=== PATIENT | male | born 1950 | race Caucasian/White ===

== ENCOUNTER 2016-12-05 06:02 | Day surgery (SDC) | payer OTHER ==
[~2016-12-05] VITALS: Ht 195.6 cm; Wt 149.1 kg
[~2016-12-05 06:02] MED LIST: AMLO10 PO; AMLO5TAB22 PO; ASPI81TA11 PO; COEN400C PO; COZA100T PO; DILA2TAB2 PO; FENO160T2 PO; LANTUS2P SC; METF-324 PO; NOVOLOGP2 SQ; PRAV20 PO; SENN187 PO; VITA10004 PO; VITA400C70 PO; VITA500015 PO
[2016-12-05 06:43] VITALS: BP 182/90; PULSE 78; RESP 20; TEMP 98; O2SAT 94
[2016-12-05] MEDS ORDERED: VANCOMYCIN 1000 MG/NS 250 ML - implanted port/tunneled catheter IV SCH ×2 (06:45)
[2016-12-05] MEDS ORDERED: POVIDONE IODINE 5% (ANTISEPSIS KIT) 4 APPLICATIONS EACH NARE SCH (06:45)
[2016-12-05] MEDS ORDERED: CHLORHEXIDINE GLUCONATE 2 % 1 PACK (2 CLOTHS) TOPICAL SCH (06:45)
[2016-12-05] MEDS: SODIUM CHLORIDE 0.9% 1000 ML IV SCH ×2 (06:45→07:45)
[2016-12-05] MEDS ORDERED: ceFAZolin 2 GM PREMIX 50 ML - implanted port/tunneled catheter insertion IV SCH (06:45)
[2016-12-05] MEDS ORDERED: NOVOLOGP2 SQ (07:04)
[2016-12-05] MEDS ORDERED: AMLO10TA2 PO (07:04)
[2016-12-05] MEDS ORDERED: METF1000 PO (07:04)
[2016-12-05] MEDS ORDERED: ASPI81TA81 (07:04)
[2016-12-05] MEDS ORDERED: PRAV40TA2 PO (07:04)
[2016-12-05] MEDS ORDERED: LOSA100T PO (07:04)
[2016-12-05] MEDS ORDERED: VITA100032 (07:04)
[2016-12-05] MEDS ORDERED: FENO160T PO (07:04)
[2016-12-05] MEDS ORDERED: INSU1.2I SQ (07:04)
[2016-12-05] MEDS ORDERED: VITA100021 SL (07:04)
[2016-12-05] MEDS ORDERED: AMLO10 PO (07:04)
[2016-12-05] MEDS ORDERED: PROT40TA PO (07:07)
[2016-12-05] MEDS ORDERED: DILA2TAB2 PO (07:07)
[2016-12-05] MEDS ORDERED: LEXA20TA PO (07:07)
[2016-12-05] MEDS ORDERED: COQ1200C (07:07)
[2016-12-05] MEDS ORDERED: VITA400C2 PO (07:07)
[2016-12-05] MEDS ORDERED: ZOFR8TAB PO (07:07)
[2016-12-05] MEDS ORDERED: MIDAZOLAM HCL 5 MG/5 ML VIAL ONE (08:33)
[2016-12-05] MEDS ORDERED: fentaNYL CITRATE 250 MCG/5 ML AMP ONE (08:33)
[2016-12-05] MEDS ORDERED: LIDOCAINE 1%/EPINEPHrine 1:100,000 SOLN 20 ML VIAL ONE (08:42)
[2016-12-05 09:30] VITALS: BP 170/81; PULSE 84; RESP 18; TEMP 98.3; O2SAT 94
[2016-12-05 09:45] VITALS: BP 185/89; PULSE 83; RESP 18; O2SAT 94
[2016-12-05 10:00] VITALS: BP 157/79; PULSE 82; RESP 18; O2SAT 94
[2016-12-05 10:30] VITALS: BP 138/72; PULSE 80; RESP 18; O2SAT 94
--- NOTE | 2016-12-05 10:34 | PD.RAD ---
Post Procedure Progress Note Pre Procedure Diagnosis: (1) Right renal mass Post Procedure Diagnosis: (1) Right renal mass Procedure Date: Dec 05, 2016 Supervising Radiologist: Geoffrey Sanabria Proceduralist/Assist: RT Ginny(R), RT Antonio(R) Anesthesia: Conscious Sedation Plan of Activity Patient to Unit: ROPU Patient Condition: Fair See PACS Report for procedural detail/treatment Central Venous Access Device Procedure 1 Right Internal Jugular Infusaport Placement single lumen Geoffrey Sanabria MD Dec 05, 2016 10:34
[2016-12-05] MEDS ORDERED: SODIUM CHLORIDE 0.9% FLUSH 5 ML FLUSH IVF PRN (10:45)
[2016-12-05 11:00] VITALS: BP 129/69; PULSE 76; RESP 18; O2SAT 94
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
== END 2016-12-05 11:40 | disposition home or self-care (01) ==
LOC: HROP 06:02 → HRIP 06:43 → HROP 11:40
PROVIDERS: ATTEND Internal Medicine Hematology & Oncology
DX: Z45.2 Encounter for adjustment and management of vascular access device (principal); C64.9 Malignant neoplasm of unspecified kidney, except renal pelvis; I10 Essential (primary) hypertension; E78.5 Hyperlipidemia, unspecified; E11.9 Type 2 diabetes mellitus without complications; K21.9 Gastro-esophageal reflux disease without esophagitis
CPT/HCPCS: 36561; 76937; 77001; C1788; J0690; J1642; J2250; J3010; J3370; J7030; J7050

== ENCOUNTER 2017-07-12 08:58 | Day surgery (SDC) | payer OTHER ==
[~2017-07-12] VITALS: Ht 195.6 cm; Wt 150.0 kg
[~2017-07-12 08:58] MED LIST changes: +AMLO10TA2 PO; -AMLO5TAB22 PO; -ASPI81TA11 PO; +ASPI81TA81 PO; -COEN400C PO; +COQ1200C; -COZA100T PO; +FENO160T PO; -FENO160T2 PO; +INSU1.2I SQ; -LANTUS2P SC; +LEXA20TA PO; +LOSA100T PO; -METF-324 PO; +METF1000 PO; -PRAV20 PO; +PRAV40TA2 PO; +PROT40TA PO; -SENN187 PO; +VITA100021 SL; +VITA100032; -VITA10004 PO; +VITA400C2 PO; -VITA400C70 PO; -VITA500015 PO; +ZOFR8TAB PO
[2017-07-12 09:19] VITALS: BP 180/90; PULSE 67; RESP 18; TEMP 98; O2SAT 94
[2017-07-12] MEDS ORDERED: COEN400C PO (09:47)
[2017-07-12] MEDS ORDERED: VITA1000 PO (09:47)
[2017-07-12] MEDS ORDERED: CELE40TA PO (09:47)
[2017-07-12] MEDS ORDERED: VITA200C3 PO (09:47)
[2017-07-12] MEDS ORDERED: CELE200C PO (09:47)
[2017-07-12 09:51] LABS: AUTOMATED NEUTROPHIL # 4.4 TH/MM3 (1.8-7.7); BASOPHIL % 0.8 % (0.0-2.0); EOSINOPHIL # 0.1 TH/MM3 (0-0.4); EOSINOPHIL % 1.9 % (0.0-4.0); HEMATOCRIT 37.9 % (39.0-51.0); HEMO FLAGS DIFF FINAL; LYMPH % 9.3 % (9.0-44.0); LYMPHOCYTE # 0.5 TH/MM3 (1.0-4.8); MEAN CELL VOLUME 87.3 FL (80.0-100.0); MEAN CORPUSCULAR HEMOGLOBIN 29.3 PG (27.0-34.0); MEAN CORPUSCULAR HGB CONC 33.6 % (32.0-36.0); MONO % 10.1 % (0.0-8.0); NEUT % 77.9 % (16.0-70.0); PLATELET COUNT 173 TH/MM3 (150-450); RED BLOOD COUNT 4.34 MIL/MM3 (4.50-5.90); WHITE BLOOD COUNT 5.6 TH/MM3 (4.0-11.0)
[2017-07-12] MEDS ORDERED: INSULIN HUMAN REGULAR 1,000 UNITS/10 ML VIAL SQ PRN (10:00)
[2017-07-12] MEDS ORDERED: SODIUM CHLOR 0.9% 1000 ML INJ 1,000 ML IV SCH (10:00)
[2017-07-12] MEDS ORDERED: SODIUM CHLORID 0.9% 500 ML IV PRN (10:00)
[2017-07-12] MEDS ORDERED: CHLORHEXIDINE GLUCONATE 2 % 1 PACK (2 CLOTHS) TOPICAL PRN (10:00)
[2017-07-12] MEDS ORDERED: LACTATED RINGER'S 1000 ML IV PRN (10:00)
[2017-07-12] MEDS ORDERED: METOPROLOL TARTRATE 25 MG TAB PO PRN (10:00)
[2017-07-12] MEDS ORDERED: POVIDONE IODINE 5% (ANTISEPSIS KIT) 4 APPLICATIONS EACH NARE PRN (10:00)
[2017-07-12 10:02] LABS: APTT (PATIENT) 70.7 SEC (24.3-30.1); INTERNATIONAL NORMALIZED RATIO 1.1 RATIO; PROTHROMBIN TIME - PATIENT 11.8 SEC (9.8-11.6)
[2017-07-12 10:15] LABS: POTASSIUM 3.8 MEQ/L (3.5-5.1)
[2017-07-12] MEDS ORDERED: ePHEDrine/NS 25 MG/5 ML SYR IV ONE (10:16)
[2017-07-12] MEDS ORDERED: PROPOFOL 200 MG/20 ML AMP IV ONE (10:16)
[2017-07-12] MEDS ORDERED: ONDANSETRON HCL 4 MG/2 ML VIAL IV PUSH ONE (10:16)
[2017-07-12] MEDS ORDERED: PHENYLEPH/NS 1000 MCG/10 ML SYR IV ONE (10:16)
--- NOTE | 2017-07-12 12:42 | EKG ---
Date Performed: 07/12/2017 Time Performed: 09:45:20 PTAGE: 67 years EKG: Sinus rhythm LEFT ANTERIOR FASCICULAR BLOCK ABNORMAL ECG PREVIOUS TRACING : 12/22/2014 10.50 DOCTOR: Ton Caruso Interpretating Date/Time 07/12/2017 12:40:28
[2017-07-12] MEDS ORDERED: ceFAZolin 2 GM PREMIX 50 ML ONE (13:05)
[2017-07-12] MEDS ORDERED: BUPIVACAINE HCL PF 0.75% 30 ML VIAL ONE (13:08)
[2017-07-12] MEDS ORDERED: DO NOT ADM ANY ANTICOAGULANT DRUGS PRN (15:30)
--- NOTE | 2017-07-12 15:30 | PD.RAD ---
Post Procedure Progress Note Pre Procedure Diagnosis: (1) Vertebral compression fracture Post Procedure Diagnosis: (1) Vertebral compression fracture Procedure Date: Jul 12, 2017 Supervising Radiologist: Rafael Roberson Proceduralist/Assist: RT Darlin(R) Anesthesia: General Plan of Activity Patient to Unit: PACU Patient Condition: Good See PACS Report for procedural detail/treatment Spinal Procedure Kyphoplasty T12 Total Bone Cement (CCs): 5 Biopsy: 13 ga bone biopsy Rafael Roberson MD Jul 12, 2017 15:30
[2017-07-12 15:55] VITALS: BP 139/74; PULSE 65; RESP 16; TEMP 97.9; O2SAT 94
[2017-07-12 16:10] VITALS: BP 142/78; PULSE 63; RESP 20; O2SAT 96
[2017-07-12 16:40] VITALS: BP 161/93; PULSE 66; RESP 20; O2SAT 95
[2017-07-12 17:10] VITALS: BP 176/89; PULSE 70; RESP 20; O2SAT 97
--- NOTE | 2017-07-13 14:36 | RADRPT ---
EXAM DATE/TIME: 07/12/2017 00:00 [facility] COMPARISON: No previous studies available for comparison. INDICATIONS : Patient presents with compression fracture of thoracic vertebrae twelve in need of kyphoplasty . MEDICAL HISTORY : Renal cancer GERD T12 compression fracture DM High cholesterol SURGICAL HISTORY : Partial right nephrectomy Right rotator cuff repair Right leg repair ENCOUNTER: Initial ACUITY: 7-11 months PAIN SCORE: 5/10 LOCATION: Back and neck pain. FLUORO TIME: 21.0 minutes IMAGE SERIES: 0 SEDATION TIME: LEVEL: T12 DEVICE: 1. 7 cc AVAMax bone cement PROCEDURE : 1. Fluoroscopically-guided kyphoplasty. 2. Conscious sedation with continuous EKG and oximetry monitoring. The risks, benefits and alternatives to the procedure were explained and verbal and written consent w as obtained. The site was prepped in sterile fashion. Full sterile technique was used, including ca p, mask, sterile gloves and gown and a large sterile sheet. Hand hygiene and 2% chlorhexidine and/or betadine/alcohol prep was utilized per protocol for cutaneous antisepsis. The skin and subcutaneous tissues were infiltrated with local anesthetic solution. With fluoroscopic guidance via the above described approach access was gained to the vertebral body. Kyphoplasty was performed with cavity creation as above. The prescribed cement volume was placed. Post procedure images demonstrate cement confined to the vertebral body. Conscious sedation was performed with the prescribed dosages and duration as above in the presence of an independent trained radiology nurse to assist in the monitoring of the patient. EKG and oximetry remained stable throughout the procedure. The patient tolerated the procedure well and there were n o complications. The patient was sent to post anesthesia recovery in stable condition. CONCLUSION: Uncomplicated kyphoplasty as above. Rafael Roberson MD on July 13, 2017 at 14:34 Board Certified Radiologist. This report was verified electronically.
== END 2017-07-12 17:40 | disposition home or self-care (01) ==
LOC: HROP 08:58 → HRIP 08:59 → HROP 17:40
PROVIDERS: ATTEND Internal Medicine Hematology & Oncology
DX: S22.080A Wedge compression fracture of T11-T12 vertebra, initial encounter for closed fracture (principal); Z85.528 Personal history of other malignant neoplasm of kidney; K21.9 Gastro-esophageal reflux disease without esophagitis; E11.9 Type 2 diabetes mellitus without complications; E78.00 Pure hypercholesterolemia, unspecified; R94.31 Abnormal electrocardiogram [ECG] [EKG]; Z79.4 Long term (current) use of insulin
CPT/HCPCS: 22513; 80048; 85025; 85610; 85730; 88307; 88311; 88341; 88342; 93005; J0690; J2370; J2405

== ENCOUNTER 2017-12-07 13:09 | Emergency (ER) | payer OTHER ==
[~2017-12-07] VITALS: Ht 195.6 cm; Wt 140.0 kg
[~2017-12-07 13:09] MED LIST changes: -AMLO10TA2 PO; +CELE200C PO; +CELE40TA PO; +COEN400C PO; -COQ1200C; -DILA2TAB2 PO; +DILA2TAB4 PO; -LEXA20TA PO; +VITA1000 PO; -VITA100032; +VITA200C3 PO; -VITA400C2 PO
[2017-12-07] MEDS ORDERED: IOHEXOL 350 MG/ML 10 ML VIAL (for RAD DIAG) IVCONTRAST ONE (13:10)
[2017-12-07] MEDS ORDERED: IODIXANOL 320 MG/ML 10 ML VIAL (for Rad CT) IVCONTRAST ONE (13:10)
[2017-12-07 13:12] VITALS: BP 135/94; PULSE 80; RESP 18; TEMP 99; O2SAT 96
[2017-12-07] MEDS ORDERED: HYDROmorphone HCL PF 1 MG/ML VIAL IVS ONE (14:30)
[2017-12-07] MEDS ORDERED: SODIUM CHLOR 0.9% 1000 ML INJ 1,000 ML IV ONE (14:30)
--- NOTE | 2017-12-07 14:34 | PD ---
HPI Chief Complaint: GI Complaint Time Seen by Provider: 14:12 Travel History International Travel<30 days: No Contact w/Intl Traveler<30days: No Traveled to known affect area: No History of Present Illness HPI This 67-year-old man who presents to the emergency department cranio-abdominal pain. He has a history of metastatic renal cell cancer diagnosed in 2015, status post right partial nephrectomy, with extensive peritoneal metastatic disease, including most prominently a right upper quadrant abdominal wall mass, and a right sided mass above the bladder. He has had worsening pain from these and is on Dilaudid regularly for the pain. He recently completed radiation treatments to the same 2 areas, finishing about 11 treatments 10 days ago. He was warned that this could put him at risk for bowel perforation. He has been having worsening pain over the past several days. He has also had stool changes with mucoid and bloody stools. Denies any constipation. Has had a little bit of urinary difficulty. Typically has trouble with dribbling and hesitancy, but worse recently. History Past Medical History Narrative Medical Metastatic renal cancer, follows with Dr. Moya, and with Dr. Bennett Diabetes Hyperlipidemia GERD Tetanus Vaccination: < 5 Years Social History Alcohol Use: No Tobacco Use: No (quit 25 years ago) Allergies-Medications (Allergen,Severity, Reaction): Coded Allergies: *MDRO Multi-Drug Resistant Organism (Verified Allergy, Severe, 12/07/17) hx: MRSA 2013. patient denies Reported Meds & Prescriptions Reported Meds & Active Scripts Active Reported Celexa (Citalopram Hydrobromide) 40 Mg Tab 40 Mg PO DAILY Coq-10 (Coenzyme Q10 (Ubidecarenone)) 400 Mg Cap 200 Mg PO HS Vitamin E 200 Unit Cap 400 Units PO DAILY Vitamin D-1000 (Cholecalciferol) 1,000 Unit Tab 1,000 Units PO DAILY Protonix (Pantoprazole Sodium) 40 Mg Tab 40 Mg PO DAILY Zofran (Ondansetron HCl) 8 Mg Tab 8 Mg PO TID PRN Dilaudid (Hydromorphone HCl) 2 Mg Tab 2 Mg PO Q6H PRN Vitamin B-12 (Cyanocobalamin) 1,000 Mcg Subl 1,000 Mcg SL BID Aspir-81 (Aspirin) 81 Mg Tabdr 81 Mg PO DAILY Fenofibrate 160 Mg Tab 160 Mg PO HS Pravastatin 40 Mg Tab 40 Mg PO HS Norvasc (Amlodipine Besylate) 10 Mg Tab 10 Mg PO DAILY Losartan (Losartan Potassium) 100 Mg Tab 100 Mg PO DAILY Metformin (Metformin HCl) 1,000 Mg Tab 1,000 Mg PO BIDPC With meals Novolog Inj (Insulin Aspart) 1,000 Unit/10 Ml Vial 2-12 Units SQ TIDAC Max dose at bedtime ( ) units; sugars less than 70,(0) units; sugars 150-199,(2) units; sugars 200-249,(4) units; sugars 250-299,(7) units; sugars 300-349,(10) units; sugars greater than 349,(12)units Totk Solostar Pen Inj (Insulin Glargine) 300 Unit/Ml Pen 75 Units SQ DAILY Review of Systems Except as stated in HPI: all other systems reviewed are Neg Physical Exam Narrative GENERAL: 67-year-old man, appears older chronically ill, nontoxic. SKIN: Focused skin assessment warm/dry. A little bit pale. HEAD: Atraumatic. Normocephalic. EYES: Pupils equal and round. No scleral icterus. No injection or drainage. ENT: No nasal bleeding or discharge. Mucous membranes pink and moist. NECK: Trachea midline. No JVD. CARDIOVASCULAR: Regular rate and rhythm. No murmur appreciated. RESPIRATORY: No accessory muscle use. Clear to auscultation. Breath sounds equal bilaterally. GASTROINTESTINAL: Abdomen is obese, soft, there is guarding and tenderness on the right side, especially in the lower abdomen. There is no palpable distended bladder or other masses. MUSCULOSKELETAL: No obvious deformities. No clubbing. No cyanosis. No edema. NEUROLOGICAL: Awake and alert. No obvious cranial nerve deficits. Motor grossly within normal limits. Normal speech. PSYCHIATRIC: Appropriate mood and affect; insight and judgment normal. Data Data Last Documented VS Vital Signs Date Time Temp Pulse Resp B/P (MAP) Pulse Ox O2 Delivery O2 Flow Rate FiO2 12/07/17 15:46 97.9 64 16 142/63 (89) 96 Room Air Orders Orders Complete Blood Count With Diff (12/07/17 14:03) Comprehensive Metabolic Panel (12/07/17 14:03) Iv Access Insert/Monitor (12/07/17 14:03) Urinalysis - C+S If Indicated (12/07/17 14:03) Sodium Chlor 0.9% 1000 Ml Inj (Ns 1000 M (12/07/17 14:30) Hydromorphone Pf Inj (Dilaudid Pf Inj) (12/07/17 14:30) Ct Abd/Pel W Iv Contrast(Rout) (12/07/17 ) Iodixanol 320 Inj (Rad Ct) (Visipaque 32 (12/07/17 13:10) Labs Laboratory Tests Test 12/07/17 14:00 12/07/17 15:45 White Blood Count 3.7 TH/MM3 Red Blood Count 3.77 MIL/MM3 Hemoglobin 13.0 GM/DL Hematocrit 35.3 % Mean Corpuscular Volume 93.8 FL Mean Corpuscular Hemoglobin 34.4 PG Mean Corpuscular Hemoglobin Concent 36.7 % Red Cell Distribution Width 16.5 % Platelet Count 188 TH/MM3 Mean Platelet Volume 7.6 FL Neutrophils (%) (Auto) 73.4 % Lymphocytes (%) (Auto) 12.1 % Monocytes (%) (Auto) 10.2 % Eosinophils (%) (Auto) 3.3 % Basophils (%) (Auto) 1.0 % Neutrophils # (Auto) 2.7 TH/MM3 Lymphocytes # (Auto) 0.4 TH/MM3 Monocytes # (Auto) 0.4 TH/MM3 Eosinophils # (Auto) 0.1 TH/MM3 Basophils # (Auto) 0.0 TH/MM3 CBC Comment AUTO DIFF Differential Comment AUTO DIFF CONFIRMED Blood Urea Nitrogen 17 MG/DL Creatinine 1.09 MG/DL Random Glucose 124 MG/DL Total Protein 6.7 GM/DL Albumin 3.6 GM/DL Calcium Level 8.9 MG/DL Alkaline Phosphatase 28 U/L Aspartate Amino Transf (AST/SGOT) 46 U/L Alanine Aminotransferase (ALT/SGPT) 52 U/L Total Bilirubin 0.5 MG/DL Sodium Level 137 MEQ/L Potassium Level 4.1 MEQ/L Chloride Level 103 MEQ/L Carbon Dioxide Level 27.2 MEQ/L Anion Gap 7 MEQ/L Estimat Glomerular Filtration Rate 67 ML/MIN Urine Color LIGHT-YELLOW Urine Turbidity CLEAR Urine pH 5.5 Urine Specific [place] 1.007 Urine Protein NEG mg/dL Urine Glucose (UA) NEG mg/dL Urine Ketones NEG mg/dL Urine Occult Blood NEG Urine Nitrite NEG Urine Bilirubin NEG Urine Urobilinogen LESS THAN 2.0 MG/DL Urine Leukocyte Esterase NEG Urine WBC LESS THAN 1 /hpf Urine Squamous Epithelial Cells <1 /hpf Microscopic Urinalysis Comment CULT NOT INDICATED MDM Medical Decision Making Medical Screen Exam Complete: Yes Emergency Medical Condition: Yes Interpretation(s) LABS: CBC remarkable for decreased white count CMP unremarkable. UA negative. CT abdomen pelvis: Multiple previously noted mesenteric and omental masses have decreased in size. Small area apparent sludge in the gallbladder. Stable appearance of the kidneys. 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 Will check labs , CT, IV fluids, pain medication, reassess. Diagnosis Primary Impression: Abdominal pain Additional Instructions: Follow-up with Dr. Moya on Sunday as scheduled. Continue current medications. Return to the emergency department for any new or worsening symptoms. Med/Other Pt SpecificInfo: No Change to Meds Disposition: 01 DISCHARGE HOME Condition: Stable Kana Flores MD Dec 07, 2017 14:34
[2017-12-07 14:40] VITALS: BP 127/82; PULSE 71; RESP 16; TEMP 97.8; O2SAT 98
[2017-12-07 15:13] LABS: AUTOMATED NEUTROPHIL # 2.7 TH/MM3 (1.8-7.7); EOSINOPHIL # 0.1 TH/MM3 (0-0.4); EOSINOPHIL % 3.3 % (0.0-4.0); HEMATOCRIT 35.3 % (39.0-51.0); LYMPH % 12.1 % (9.0-44.0); LYMPHOCYTE # 0.4 TH/MM3 (1.0-4.8); MEAN CELL VOLUME 93.8 FL (80.0-100.0); MEAN CORPUSCULAR HEMOGLOBIN 34.4 PG (27.0-34.0); MEAN PLATELET VOLUME 7.6 FL (7.0-11.0); MONO % 10.2 % (0.0-8.0); MONOCYTE # 0.4 TH/MM3 (0-0.9); NEUT % 73.4 % (16.0-70.0); PLATELET COUNT 188 TH/MM3 (150-450); RED BLOOD COUNT 3.77 MIL/MM3 (4.50-5.90); RED CELL DISTRIBUTION WIDTH 16.5 % (11.6-17.2); WHITE BLOOD COUNT 3.7 TH/MM3 (4.0-11.0)
[2017-12-07 15:16] LABS: MEAN CORPUSCULAR HGB CONC 36.7 % (32.0-36.0)
[2017-12-07 15:29] LABS: ALBUMIN 3.6 GM/DL (3.4-5.0); ALT (GPT) 52 U/L (12-78); AST (GOT) 46 U/L (15-37); BICARBONATE 27.2 MEQ/L (21.0-32.0); BLOOD UREA NITROGEN 17 MG/DL (7-18); CALCIUM 8.9 MG/DL (8.5-10.1); CHLORIDE 103 MEQ/L (98-107); CREATININE 1.09 MG/DL (0.60-1.30); GLOMERULAR FILTRATION RATE 67 ML/MIN (>89); GLUCOSE,RANDOM 124 MG/DL (74-106); SODIUM (NA) 137 MEQ/L (136-145)
[2017-12-07 15:32] LABS: ALKALINE PHOSPHATASE 28 U/L (45-117); TOTAL BILIRUBIN ADULT 0.5 MG/DL (0.2-1.0); TOTAL PROTEIN 6.7 GM/DL (6.4-8.2)
[2017-12-07 15:46] VITALS: BP 142/63; PULSE 64; RESP 16; TEMP 97.9; O2SAT 96
[2017-12-07 16:17] LABS: BILIRUBIN, URINE NEG (NEG); BLOOD, URINE NEG (NEG); GLUCOSE,URINE NEG (NEG); KETONE, URINE NEG (NEG); NITRITE,URINE NEG (NEG); PH, URINE 5.5 (5.0-8.5); SQUAMOUS EPITHELIAL CELL URINE <1 /hpf (0-5); URINE COLOR LIGHT-YELLOW (YELLW/STRAW); URINE LEUKOCYTE ESTERASE NEG (NEG)
--- NOTE | 2017-12-07 16:22 | RADRPT ---
EXAM DATE/TIME: 12/07/2017 16:02 [facility] COMPARISON: CT ABDOMEN & PELVIS W CONTRAST, October 26, 2015, 1:29. INDICATIONS : Lower abdomen pain for one week. IV CONTRAST: 50 cc Visipaque (iodixanol) IV ORAL CONTRAST: No oral contrast ingested. RADIATION DOSE: 30.75 CTDIvol (mGy) MEDICAL HISTORY : Hypertension. Diabetes mellitus type 2. Diverticulitis. Kidney cancer SURGICAL HISTORY : Appendectomy. Hernia sx. ENCOUNTER: Initial ACUITY: 1 week PAIN SCALE: 8/10 LOCATION: Bilateral lower quadrant TECHNIQUE: Volumetric scanning of the abdomen and pelvis was performed. Using automated exposure control and ad justment of the mA and/or kV according to patient size, radiation dose was kept as low as reasonably achievable to obtain optimal diagnostic quality images. DICOM format image data is available electro nically for review and comparison. FINDINGS: LOWER LUNGS: The visualized lower lungs are clear. LIVER: Homogeneous density without lesion. There is no dilation of the biliary tree. No calcified gallston es. There is mild hepatic steatosis. There is a small high density area noted in the dependent portio n of the gallbladder which could indicate sludge. SPLEEN: Normal size without lesion. PANCREAS: Within normal limits. KIDNEYS: Normal in size and shape. There is no mass, stone or hydronephrosis. ADRENAL GLANDS: Within normal limits. VASCULAR: There is no aortic aneurysm. BOWEL/MESENTERY: The stomach, small bowel, and colon demonstrate no acute abnormality. There is no free intraperitone al air or fluid. The multiple previously noted low-density omental masses have all decreased mildly i n size with no definite new masses identified. This remains most characteristic of metastatic disease . There are at least 4 remaining masses with no definite new masses identified. ABDOMINAL WALL: Within normal limits. RETROPERITONEUM: There is no lymphadenopathy. BLADDER: No wall thickening or mass. REPRODUCTIVE: Within normal limits. INGUINAL: There is no lymphadenopathy or hernia. MUSCULOSKELETAL: Status post-interval kyphoplasty in the lower thoracic spine. CONCLUSION: 1. We multiple previously noted mesenteric/omental masses have decreased in size from the prior study with no definite new masses. This remains most consistent with metastatic disease. 2. Small area of apparent sludge in the gallbladder with no wall thickening or inflammatory change. 3. Stable appearance of the kidneys with no recurrent mass. Randy Ko MD on December 07, 2017 at 16:13 Board Certified Radiologist. This report was verified electronically.
[2017-12-07] MEDS ORDERED: HYDROmorphone HCL PF 1 MG/ML VIAL IV PUSH ONE (17:00)
[2017-12-07 17:10] VITALS: BP 132/81; TEMP 97.8
== END 2017-12-07 17:12 | disposition home or self-care (01) ==
LOC: NEPE 13:09
DX: R10.9 Unspecified abdominal pain (principal); C78.6 Secondary malignant neoplasm of retroperitoneum and peritoneum; E11.9 Type 2 diabetes mellitus without complications; E78.5 Hyperlipidemia, unspecified; K21.9 Gastro-esophageal reflux disease without esophagitis; Z85.528 Personal history of other malignant neoplasm of kidney; Z87.891 Personal history of nicotine dependence; Z79.4 Long term (current) use of insulin; Z79.84 Long term (current) use of oral hypoglycemic drugs; Z79.82 Long term (current) use of aspirin; Z79.891 Long term (current) use of opiate analgesic
CPT/HCPCS: 74177; 80053; 81001; 85025; 96361; 96374; 96376; 99284; J1170; J1642; J7030; Q9967

== ENCOUNTER 2018-04-15 07:40 | Inpatient (IN) | payer OTHER, MEDICARE ==
[2018-04-15] VITALS (8 sets, daily range): BP systolic 136–159; BP diastolic 74–81; PULSE 54–62; RESP 13–23; TEMP 97.7–98.2; O2SAT 93–100
[~2018-04-15] VITALS: Ht 195.6 cm; Wt 138.2 kg
[~2018-04-15 07:40] MED LIST changes: +BEDSIDE COMMODE1 MI1; +CABO60TA PO; -CELE200C PO; +COLL30T TOPICAL; +GABA300C5 PO; +HYDR4TAB PO; -METF1000 PO; -NOVOLOGP2 SQ; +RAISED TOILET S1 MI1; +TAMS5CAP PO; -VITA1000 PO; -VITA100021 SL; -VITA200C3 PO; +XARE15TA PO
[2018-04-15] MEDS: SODIUM CHLORIDE 0.9% 1000 ML IV SCH (08:00)
[2018-04-15] MEDS ORDERED: PROC10TA PO (08:48)
[2018-04-15] MEDS ORDERED: MS C15TA7 PO (08:48)
[2018-04-15 08:55] LABS: AUTOMATED NEUTROPHIL # 1.7 TH/MM3 (1.8-7.7); BASOPHIL % 0.5 % (0.0-2.0); EOSINOPHIL % 1.6 % (0.0-4.0); HEMATOCRIT 30.3 % (39.0-51.0); HEMOGLOBIN 10.3 GM/DL (13.0-17.0); LYMPH % 12.5 % (9.0-44.0); LYMPHOCYTE # 0.3 TH/MM3 (1.0-4.8); MEAN CELL VOLUME 96.5 FL (80.0-100.0); MEAN CORPUSCULAR HEMOGLOBIN 32.8 PG (27.0-34.0); MEAN PLATELET VOLUME 7.3 FL (7.0-11.0); MONO % 11.7 % (0.0-8.0); MONOCYTE # 0.3 TH/MM3 (0-0.9); NEUT % 73.7 % (16.0-70.0); PLATELET COUNT 153 TH/MM3 (150-450); RED BLOOD COUNT 3.14 MIL/MM3 (4.50-5.90); WHITE BLOOD COUNT 2.3 TH/MM3 (4.0-11.0)
[2018-04-15 09:05] LABS: INTERNATIONAL NORMALIZED RATIO 1.1 RATIO
[2018-04-15 09:12] LABS: CALCIUM 8.6 MG/DL (8.5-10.1); CREATININE 0.93 MG/DL (0.60-1.30)
[2018-04-15] MEDS ORDERED: fentaNYL CITRATE 250 MCG/5 ML AMP ONE (10:06)
[2018-04-15] MEDS ORDERED: MIDAZOLAM HCL 5 MG/5 ML VIAL ONE (10:06)
[2018-04-15] MEDS ORDERED: IOHEXOL 350 MG/ML 50 ML BTL (for RAD DIAG) OTHER ONE (11:00)
[2018-04-15] MEDS ORDERED: ALTEPLASE RECOMBINANT 2 MG VIAL IV ONE (11:10)
[2018-04-15] MEDS ORDERED: HEPARIN-D5W 25,000 U/250 ML 250 ML ONE (11:34)
--- NOTE | 2018-04-15 11:49 | PD.RAD ---
Post Procedure Progress Note Pre Procedure Diagnosis: (1) DVT (deep venous thrombosis) (2) Pulmonary embolism (3) Renal cell cancer Post Procedure Diagnosis: (1) Pulmonary embolism (2) DVT (deep venous thrombosis) (3) Renal cell cancer Procedure Date: Apr 15, 2018 Supervising Radiologist: Jose Miguel Corona Estimated blood loss: 3cc Anesthesia: Local, Conscious Sedation Plan of Activity Patient to Unit: ROPU Patient Condition: Fair Additional Comments: 67 y/o with extensive DVT right lower extremity. The risk, benefits and potential complications of clot lysis were discussed in detail. with the patient and his . Pre procedure the CT and MRI scans were reviewed. Venogram demonstrated extensive clot in the deep venous system. Clot was easily traversed with a wire. 40cm length 5 Taiwanese infusion cath placed across the clot. IVC filter placed. TPA infusion started at 2mg per hour Full dictated report to follow See PACS Report for procedural detail/treatment Jose Miguel Corona MD Apr 15, 2018 11:49
[2018-04-15] MEDS: Intra-Venous SODIUM CHLORIDE 0.9% IV LINE 1000 ML IV SCH ×2 (12:00→23:02)
[2018-04-15] MEDS ORDERED: Intra-Venous HEPARIN 1,000 UNITS/500 ML NS (PRN) IV ×2 (12:00)
[2018-04-15] MEDS ORDERED: HEPARIN-D5W 25,000 U/250 ML 250 ML IV SCH (12:00)
[2018-04-15] MEDS ORDERED: MORPHINE SULFATE 4 MG/ML INJ IV PUSH PRN ×2 (12:00→14:15)
[2018-04-15] MEDS ORDERED: SODIUM CHLOR 0.9% 1000 ML INJ 1,000 ML IV SCH (12:56)
[2018-04-15] MEDS ORDERED: POTASSIUM PHOSPHATE MONOBASIC 500 MG TAB PO/TUBE PRN (13:00)
[2018-04-15] MEDS ORDERED: MAGNESIUM OXIDE 400 MG TAB PO PRN (13:00)
[2018-04-15] MEDS ORDERED: POTASSIUM CHLOR 20 MEQ PREMIX 100 ML IV PRN ×2 (13:00)
[2018-04-15] MEDS ORDERED: SENNOSIDES 8.6 MG TAB PO PRN (13:00)
[2018-04-15] MEDS ORDERED: MAGNESIUM SULFATE INJ 4 GM in SODIUM CHLORIDE 0.9% INJ 92 ML IV PRN (13:00)
[2018-04-15] MEDS ORDERED: SODIUM PHOSPHATE INJ 30 MMOL in SODIUM CHLOR 0.9% 250 ML INJ 240 ML IV PRN (13:00)
[2018-04-15] MEDS ORDERED: MAGNESIUM HYDROXIDE SUSP 30 ML CUP PO PRN (13:00)
[2018-04-15] MEDS ORDERED: PROCHLORPERAZINE INJ 10 MG/2 ML VIAL IV PUSH PRN (13:00)
[2018-04-15] MEDS ORDERED: GLUCAGON 1 MG/ML VIAL OTHER PRN (13:00)
[2018-04-15] MEDS ORDERED: POTASSIUM PHOSPHATE INJ 30 MMOL in SODIUM CHLOR 0.9% 250 ML INJ 250 ML IV PRN (13:00)
[2018-04-15] MEDS ORDERED: CHLORHEXIDINE GLUCONATE 2 % 1 PACK (2 CLOTHS) TOP PRN (13:00)
[2018-04-15] MEDS ORDERED: POTASSIUM CHLOR 40 MEQ PREMIX 100 ML IV PRN ×2 (13:00)
[2018-04-15] MEDS ORDERED: LACTULOSE SYRUP 20 GM/30 ML CUP PO PRN (13:00)
[2018-04-15] MEDS ORDERED: MAGNESIUM SULFATE INJ 2 GM in SODIUM CHLORIDE 0.9% INJ 96 ML IV PRN (13:00)
[2018-04-15] MEDS ORDERED: SODIUM CHLORIDE 0.9% FLUSH 10 ML FLUSH IV FLUSH PRN (13:00)
[2018-04-15] MEDS ORDERED: TEMAZEPAM 15 MG CAP PO PRN (13:00)
[2018-04-15] MEDS ORDERED: NURSING INFORMATION XX SCH (13:00)
[2018-04-15] MEDS ORDERED: POTASSIUM CHLORIDE 25 MEQ EFFERVESCENT TAB PO PRN (13:00)
[2018-04-15] MEDS ORDERED: POTASSIUM PHOSPHATE MONOBASIC 500 MG TAB PO PRN (13:00)
[2018-04-15] MEDS ORDERED: RESP: ALBUTEROL 2.5 MG/3 ML NEB (PRN) INH (13:00)
[2018-04-15] MEDS ORDERED: DEXTROSE 50% IN WATER 50 ML VIAL(D50) IV PUSH PRN (13:00)
[2018-04-15] MEDS ORDERED: ONDANSETRON HCL 4 MG/2 ML VIAL IV PUSH PRN (13:00)
[2018-04-15] MEDS ORDERED: BISACODYL 10 MG SUPP RECTAL PRN (13:00)
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
[2018-04-15] MEDS: MORPHINE SULFATE 4 MG/ML INJ IV PUSH PRN ×3 (14:27→22:47)
[2018-04-15] MEDS: GABAPENTIN 300 MG CAP PO SCH ×2 (14:30→18:31)
[2018-04-15] MEDS ORDERED: ONDANSETRON ODT 4 MG TAB PO PRN (14:45)
--- NOTE | 2018-04-15 15:53 | RADRPT ---
EXAM DATE: 04/15/2018 1:33 PM EDT AGE/SEX: 67 years / Male INDICATIONS: Patient with history of right leg thrombus in need of venogram with thrombolytic infusi on. CLINICAL DATA: This is the patient's initial encounter. Patient reports that signs and symptoms have been present for > 1 year and indicates a pain score of 9/10. MEDICAL/SURGICAL HISTORY: Deep venous thrombosis. Gastroesophageal reflux disease. Diabetes. HTN. HLD. Pulmonary embolism. Renal cell carcinoma. Kyphoplasty. Appendectomy. Colonoscopy. Hernia repair. Partial nephrectomy. Port. Right leg surgery. COMPARISON: No prior exams available for comparison. FLUORO TIME (min): 7.3 IMAGE SERIES: 3 ACCESS SITE: Right popliteal vein CONTRAST (cc): 40cc Omnipaque (iohexol) 350 MEDICATION(S): 4mg midazolam (Versed) IV 200mcg fentanyl (Sublimaze) IV DEVICE(S): Right deep femoral vein EV3 Infusion catheter 5F [id number] PROCEDURE : 1. Ultrasound-guided venipuncture. 2. Venogram. The patient is a 67-year-old who has known renal cancer. The patient has undergone 2 ultrasounds demo nstrating extensive DVT involving the entire right lower extremity. The patient was initially treated with anticoagulation however, the swelling within the right lower extremity has increased. Presently , the patient has severe pain associated with this. The patient has been unable to ambulate secondary to the swelling and pain within the right leg. The risks, benefits and alternatives to the procedure were explained in detail to the patient and his . The risk included but were not limited to bleeding, infection and rarely . Verbal And wri tten consent was obtained. The patient's imaging studies were reviewed prior to the procedure. The patient has no evidence of in tracranial metastatic disease. There are 2 small peritoneal implants. The site was prepped in sterile fashion. Full sterile technique was used, including cap, mask, eladia rile gloves and gown and a large sterile sheet. Hand hygiene and 2% chlorhexidine and/or betadine/al cohol prep was utilized per protocol for cutaneous antisepsis. Sterile gel and sterile probe cover w ere utilized for ultrasound guidance. The skin and subcutaneous tissues were infiltrated with local anesthetic solution. With ultrasound guidance the selected right popliteal vein was punctured. A 0.018 wire was advanced i nto the deep venous system. This was exchanged for a 0.035 wire and a 4 [place] catheter. Venography o f the leg was performed. Results: The venogram demonstrate extensive DVT extending throughout the deep venous system up to the level of the common femoral vein. The iliac vein and IVC were patent. A 5 [place] hemostatic sheath was placed. A 5 [place] 40 cm length infusion catheter was advanced acros s the occluded segment of vein. This was left in position. Immediately following placement of the infusion catheter and retrieval IVC filter was placed. TPA infusion was initiated at 2 mg per hour. CONCLUSION: 1. Uncomplicated venogram demonstrating complete occlusion of the deep venous system of the right le g. 2. Successful placement of an infusion catheter across the occluded segment of vein for TPA lysis. Electronically signed by: Jose Miguel Corona MD 04/15/2018 3:52 PM EDT
--- NOTE | 2018-04-15 15:55 | RADRPT ---
EXAM DATE: 04/15/2018 1:33 PM EDT AGE/SEX: 67 years / Male INDICATIONS: Patient with history of right leg thrombus in need of retrievable IVC filter placement. CLINICAL DATA: This is the patient's initial encounter. Patient reports that signs and symptoms have been present for 1 day and indicates a pain score of 9/10. MEDICAL/SURGICAL HISTORY: Deep venous thrombosis. Gastroesophageal reflux disease. Diabetes. Pulmonary embolism. Renal cell carcinoma. HLD. HTN. Kyphoplasty. Appendectomy. Colonoscopy. Hernia repair. Partial nephrectomy. Port. Right leg surgery. COMPARISON: No prior exams available for comparison. FLUORO TIME (min): 7.3 IMAGE SERIES: 2 ACCESS SITE: Right internal jugular vein SEDATION TIME (min): 60 CONTRAST (cc): 20cc Omnipaque (iohexol) 350 MEDICATION(S): 4mg midazolam (Versed) IV 200mcg fentanyl (Sublimaze) IV DEVICE(S): Inferior vena cava [place] Jugular IVC Filter . . PROCEDURE : 1. Ultrasound-guided venipuncture. 2. Inferior venacavogram. 3. Inferior vena cava filter placement. 4. Conscious sedation with continuous EKG and oximetry monitoring. The risks, benefits and alternatives to the procedure were explained and verbal and written consent w as obtained. The site was prepped in sterile fashion. Full sterile technique was used, including ca p, mask, sterile gloves and gown and a large sterile sheet. Hand hygiene and 2% chlorhexidine and/or betadine/alcohol prep was utilized per protocol for cutaneous antisepsis. Sterile gel and sterile p robe cover were utilized for ultrasound guidance. The skin and subcutaneous tissues were infiltrated with local anesthetic solution. Immediately prior to placement of the filter, the patient had undergone venogram of the right leg wit h placement of an infusion catheter for extensive right lower extremity DVT. With ultrasound and fluoroscopic guidance the right internal jugular vein was punctured and a vascula r sheath was placed. Inferior venacavogram was performed to demonstrate level of renal veins. No cava l thrombus was identified. The prescribed filter was deployed in the infrarenal inferior vena cava. F ollowing deployment the filter was identified in good position. Conscious sedation was performed with the prescribed dosages and duration as above in the presence of an independent trained radiology nurse to assist in the monitoring of the patient. EKG and oximetry remained stable throughout the procedure. The patient tolerated the procedure well and there were n o complications. The patient was sent to post anesthesia recovery in stable condition. CONCLUSION: 1. Uncomplicated inferior vena cava filter placement as above. Electronically signed by: Jose Miguel Corona MD 04/15/2018 3:53 PM EDT
[2018-04-15] MEDS: RESP: ALBUTEROL 2.5 MG/IPRATROPIUM 0.5 MG NEB (SCH) INH ×2 (16:00→21:55)
[2018-04-15] MEDS: Intra-Venous ALTEPLASE 10 MG/500 ML NS IV PRN ×4 (16:04→21:11)
[2018-04-15] MEDS: INSULIN ASPART SUPPLEMENTAL SCALE SQ SCH ×2 (17:00→21:00)
[2018-04-15] MEDS: DOCUSATE SODIUM 50 MG/SENNA 8.6 MG TAB PO SCH (20:41)
[2018-04-15] MEDS: FENOFIBRATE 145 MG TAB PO SCH (20:41)
[2018-04-15] MEDS: TAMSULOSIN HCL 0.4 MG CAP PO SCH (20:41)
[2018-04-15] MEDS: PRAVASTATIN SOD 40 MG TAB PO SCH (20:41)
[2018-04-15] MEDS: SODIUM CHLORIDE 0.9% FLUSH 10 ML FLUSH IV FLUSH SCH (20:42)
[2018-04-15] MEDS: MORPHINE SULFATE 15 MG CONTROLLED RELEASE TAB PO SCH (20:42)
[2018-04-15] MEDS: INSULIN DETEMIR 100 UNITS/ML VIAL SQ SCH (21:05)
[2018-04-15 21:34] LABS: AUTOMATED NEUTROPHIL # 1.8 TH/MM3 (1.8-7.7); BASOPHIL % 0.7 % (0.0-2.0); EOSINOPHIL % 1.6 % (0.0-4.0); HEMATOCRIT 28.6 % (39.0-51.0); HEMOGLOBIN 9.6 GM/DL (13.0-17.0); LYMPHOCYTE # 0.3 TH/MM3 (1.0-4.8); MEAN CELL VOLUME 96.3 FL (80.0-100.0); MEAN CORPUSCULAR HEMOGLOBIN 32.4 PG (27.0-34.0); MEAN CORPUSCULAR HGB CONC 33.6 % (32.0-36.0); MEAN PLATELET VOLUME 7.6 FL (7.0-11.0); MONO % 11.8 % (0.0-8.0); MONOCYTE # 0.3 TH/MM3 (0-0.9); NEUT % 72.9 % (16.0-70.0); PLATELET COUNT 146 TH/MM3 (150-450); RED BLOOD COUNT 2.97 MIL/MM3 (4.50-5.90); RED CELL DISTRIBUTION WIDTH 15.5 % (11.6-17.2); WHITE BLOOD COUNT 2.5 TH/MM3 (4.0-11.0)
[2018-04-16] VITALS (12 sets, daily range): BP systolic 96–146; BP diastolic 62–71; PULSE 62–79; RESP 18–21; TEMP 98.3–99; O2SAT 94–100
[2018-04-16] MEDS: Intra-Venous ALTEPLASE 10 MG/500 ML NS IV PRN ×2 (01:50)
[2018-04-16 02:07] LABS: AUTOMATED NEUTROPHIL # 1.9 TH/MM3 (1.8-7.7); BASOPHIL % 0.5 % (0.0-2.0); EOSINOPHIL % 1.1 % (0.0-4.0); HEMATOCRIT 27.8 % (39.0-51.0); HEMOGLOBIN 9.4 GM/DL (13.0-17.0); LYMPHOCYTE # 0.2 TH/MM3 (1.0-4.8); MEAN CELL VOLUME 95.7 FL (80.0-100.0); MEAN CORPUSCULAR HEMOGLOBIN 32.3 PG (27.0-34.0); MEAN CORPUSCULAR HGB CONC 33.7 % (32.0-36.0); MEAN PLATELET VOLUME 7.5 FL (7.0-11.0); MONO % 11.4 % (0.0-8.0); MONOCYTE # 0.3 TH/MM3 (0-0.9); PLATELET COUNT 140 TH/MM3 (150-450); RED BLOOD COUNT 2.91 MIL/MM3 (4.50-5.90); RED CELL DISTRIBUTION WIDTH 15.2 % (11.6-17.2); WHITE BLOOD COUNT 2.4 TH/MM3 (4.0-11.0)
[2018-04-16] MEDS: RESP: ALBUTEROL 2.5 MG/IPRATROPIUM 0.5 MG NEB (SCH) INH ×4 (04:07→21:31)
[2018-04-16] MEDS: CHLORHEXIDINE GLUCONATE 2 % 1 PACK (2 CLOTHS) TOP SCH (04:08)
[2018-04-16] MEDS: MORPHINE SULFATE 4 MG/ML INJ IV PUSH PRN (04:15)
[2018-04-16 06:00] LABS: AUTOMATED NEUTROPHIL # 1.6 TH/MM3 (1.8-7.7); BASOPHIL % 0.8 % (0.0-2.0); HEMATOCRIT 27.1 % (39.0-51.0); HEMOGLOBIN 9.2 GM/DL (13.0-17.0); LYMPH % 11.9 % (9.0-44.0); LYMPHOCYTE # 0.3 TH/MM3 (1.0-4.8); MEAN CELL VOLUME 96.2 FL (80.0-100.0); MEAN CORPUSCULAR HEMOGLOBIN 32.7 PG (27.0-34.0); MEAN PLATELET VOLUME 7.4 FL (7.0-11.0); MONO % 12.8 % (0.0-8.0); MONOCYTE # 0.3 TH/MM3 (0-0.9); NEUT % 73.5 % (16.0-70.0); PLATELET COUNT 127 TH/MM3 (150-450); RED BLOOD COUNT 2.82 MIL/MM3 (4.50-5.90); RED CELL DISTRIBUTION WIDTH 15.4 % (11.6-17.2); WHITE BLOOD COUNT 2.2 TH/MM3 (4.0-11.0)
[2018-04-16 06:13] LABS: ALBUMIN 2.8 GM/DL (3.4-5.0); AST (GOT) 16 U/L (15-37); BICARBONATE 22.9 MEQ/L (21.0-32.0); BLOOD UREA NITROGEN 9 MG/DL (7-18); CALCIUM 7.7 MG/DL (8.5-10.1); CHLORIDE 109 MEQ/L (98-107); CREATININE 0.75 MG/DL (0.60-1.30); GLOMERULAR FILTRATION RATE 103 ML/MIN (>89); GLUCOSE,RANDOM 99 MG/DL (74-106); INTERNATIONAL NORMALIZED RATIO 1.2 RATIO; MAGNESIUM 1.7 MG/DL (1.5-2.5); PROTHROMBIN TIME - PATIENT 12.4 SEC (9.8-11.6); SODIUM (NA) 142 MEQ/L (136-145)
[2018-04-16 06:19] LABS: ALKALINE PHOSPHATASE 24 U/L (45-117); ALT (GPT) 13 U/L (12-78); PHOSPHORUS 2.7 MG/DL (2.5-4.9); TOTAL BILIRUBIN ADULT 0.7 MG/DL (0.2-1.0); TOTAL PROTEIN 5.1 GM/DL (6.4-8.2)
--- NOTE | 2018-04-16 07:20 | HHI.CCPN ---
Subjective Remarks/Hospital Course 67-year-old male. Date of admission 04/15/2018. Date of consultation 04/15/2018. Past medical history includes renal cell carcinoma status post partial right nephrectomy December 2014 and found to have intra-abdominal spread of tumor October 2015. He has extensive peritoneal metastases. Is currently on cabonzanitib. Is currently treated with rivaroxaban 50 mg twice daily for newly diagnosed DVT by the right lower extremity February 27, 2015. He is also a history of elevated BMI, diabetes mellitus with peripheral neuropathy , essential hypertension, hyperlipidemia, depressive disorder NOS and uncontrolled pain secondary to right lower extremity venous thrombosis. Yesterday, patient was seen by interventional radiology. IVC filter was placed in a 3 cm 5 Nepali sheath was placed through the thrombus in the right lower extremity and alteplase drip at 2 mg an hour was initiated along with hypertrophied 500 units an hour. He is currently being seen in ICU room 1310. Current complaining of abdominal pain at site of metastatic cancer in pain in his right lower extremity. Denies chest pain and shortness of breath. 04/16: Fibrinogen 154, tPA reduced to 50%, heparin remains at 500 u/hr. Minor bleeding right neck. Airway widely patent. Some pleuritic type chest pain with breathing, sats acceptable, respiratory effort comfortable. Objective Vital Signs Date Time Temp Pulse Resp B/P (MAP) Pulse Ox O2 Delivery O2 Flow Rate FiO2 04/16/18 06:00 68 04/16/18 04:00 98.3 21 119/62 (81) 99 04/15/18 21:59 21 04/15/18 19:00 Room Air 04/15/18 13:43 3.00 Intake and Output 04/16/18 04/16/18 04/17/18 08:00 16:00 00:00 Intake Total 1000 ml Output Total 1000 ml Balance 0 ml Result Diagram: 04/16/1852904/16/18529 Objective Remarks GENERAL: 59-year-old male currently resting in bed, comfortable. SKIN: Warm and dry. HEAD: Atraumatic. Normocephalic. EYES: Pupils equal and round 2 mm bilaterally and reactive to 2. No scleral icterus. No injection or drainage. ENT: No nasal bleeding or discharge. Mucous membranes pink and moist. NECK: Trachea midline. No JVD. Airway unobstructed. CARDIOVASCULAR: Regular rate and rhythm. S1, S2 predose repair without murmurs , clicks, gallops or rubs. No JVD. RESPIRATORY: Diminished due to body habitus, clear to auscultation. Breath sounds equal bilaterally. GASTROINTESTINAL: Abdomen soft, fairly protuberant. Tender to palpation right lower quadrant. Bowel sounds appreciated. MUSCULOSKELETAL: Extremities 1+ edema left lower extremity 2+ edema to right lower extremity. NEUROLOGICAL: Awake and alert. No obvious cranial nerve deficits. Motor grossly within normal limits. Five out of 5 muscle strength in the arms and legs. Normal speech. A/P Assessment and Plan Neuro/Psych: Acute pain management Peripheral neuropathy Depression disorder NOS Continue home medications morphine sulfate extended release 30 mg at night On morphine sulfate 2-4 mg IV every 3 hours as needed pain 1 through 10 Acetaminophen as indicated for fever 600 mg every 6 hours Continue gabapentin 300 mg 3 times daily for peripheral neuropathy Continue citalopram hydrobromide 40 mg daily for depression CV: Essential hypertension Hyperlipidemia Continue amlodipine 10 mg daily and losartan potassium 100 mg daily for hypertension Continue pravastatin 40 mg at bedtime for dyslipidemia Currently normal saline at 100 cc an hour Resp: Obstructive sleep apnea on CPAP at night Prior history of tobaccoism Nasal cannula to maintain saturations greater than or equal to 92% Incentive spirometry while awake Okay for CPAP at night using her machine at home settings GI: Gastroesophageal reflux disease 2200 ADA diet Pantoprazole for GI prophylaxis Docusate sodium/senna 1 tablet twice daily for bowel regimen : Condom catheter provided for accurate I's and O's in a critically ill patient Endo: Diabetes mellitus 1.5 treat as 1.0 At home on insulin glargine 20 units at night. Current insulin detemir 5 units tonight with Novulog sliding scale insulin Accu-Cheks before meals at bedtime/ medium protocol Renal: Currently normal saline at 100 cc an hour Monitor urine output Accurate I's and O's Heme: Leukopenia Normocytic anemia Right lower extremity DVT Chronic anticoagulation with rivaroxaban History of right renal cell carcinoma status post partial nephrectomy/radiation therapy with mesenteric metastases Holding rivaroxaban secondary to current alteplase/heparin use Monitor CBC daily. Follow trends ID: Monitor for signs and symptomatology of infection FEN: Replace electrolytes as clinically indicated per ICU electrolyte protocol MSK: PT evaluate and treat Access Utilize peripheral IV. Central line if indicated Prophylaxis -GI -pantoprazole -DVT -SCD/currently on alteplase drip at 1 mg an hour and heparin drip at 500 units an hour Overall impression: Stable respiratory and hemodynamic status. Trell Busch MD Apr 16, 2018 07:20
[2018-04-16] MEDS: INSULIN ASPART SUPPLEMENTAL SCALE SQ SCH ×4 (08:00→21:00)
[2018-04-16] MEDS: Intra-Venous SODIUM CHLORIDE 0.9% IV LINE 1000 ML IV SCH (08:00)
[2018-04-16] MEDS: SODIUM CHLORIDE 0.9% 1000 ML IV SCH ×2 (08:00→08:36)
[2018-04-16] MEDS: DOCUSATE SODIUM 50 MG/SENNA 8.6 MG TAB PO SCH ×2 (09:00→20:49)
[2018-04-16] MEDS: PANTOPRAZOLE SOD 40 MG DELAYED RELEASE TAB PO SCH (09:18)
[2018-04-16] MEDS: LOSARTAN 50 MG TAB PO SCH (09:18)
[2018-04-16] MEDS: GABAPENTIN 300 MG CAP PO SCH ×3 (09:18→18:00)
[2018-04-16] MEDS: CITALOPRAM HYDROBROMIDE 40 MG TAB PO SCH (09:18)
[2018-04-16] MEDS: SODIUM CHLORIDE 0.9% FLUSH 10 ML FLUSH IV FLUSH SCH ×2 (09:19→20:50)
[2018-04-16] MEDS ORDERED: MIDAZOLAM HCL 2 MG/2 ML VIAL ONE (10:21)
--- NOTE | 2018-04-16 11:15 | PD.RAD ---
Post Procedure Progress Note Pre Procedure Diagnosis: (1) DVT (deep venous thrombosis) Post Procedure Diagnosis: (1) DVT (deep venous thrombosis) Procedure Date: Apr 16, 2018 Supervising Radiologist: Jose Miguel Corona Estimated blood loss: 25cc Plan of Activity Patient to Unit: Critical Care Patient Condition: Fair Additional Comments: Pt. post TPA infusion for 24 Hours. Follow up angio demonstrated near complete lysis of the right venous clot. Right calf is now soft, much improved from preoperative exam. Pt experienced some oozing around the right popliteal venous sheath and at the right neck. A/P 1. good response to tpa infusion. with near complete lysis. 2. Will DC TPA infusion and continue heparin at 500U/hr. 3.will restart anticoagulation later today and DC heparin 4. PT will be transferred to hospitalist service for possible DC in AM See PACS Report for procedural detail/treatment Jose Miguel Corona MD Apr 16, 2018 11:15
[2018-04-16] MEDS ORDERED: IODIXANOL 320 MG/ML 50 ML VIAL (for RAD SPEC) I-ARTERIAL ONE (11:24)
--- NOTE | 2018-04-16 16:01 | RADRPT ---
EXAM DATE: 04/16/2018 11:39 AM EDT AGE/SEX: 68 years / Male INDICATIONS: Patient with history of deep vein thrombosis in need of follow up venogram post thrombo lytic infusion. CLINICAL DATA: This is the patient's subsequent encounter. Patient reports that signs and symptoms h ave been present for 2 days and indicates a pain score of 5/10. MEDICAL/SURGICAL HISTORY: Hypertension. Deep venous thrombosis. Renal cell carcinoma/stage IV. Hyperlipidemia. Obstructive sleep apnea. BPH. Depressive disorder NOS. Peripheral neuropathy. Appen dectomy. RT partial nephrectomy status post radiation therapy. RT rotator cuff repair. Bilateral ingu inal hernia surgery X2.Implant perry RT leg 2005.RT chest Port-A-Cath. Colonoscopy 2013. COMPARISON: No prior exams available for comparison. FLUORO TIME (min): 0.5 IMAGE SERIES: 6 ACCESS SITE: SEDATION TIME (min): 15 CONTRAST (cc): 10cc Visipaque (iodixanol) MEDICATION(S): 0.5mg midazolam (Versed) IV 50mcg fentanyl (Sublimaze) IV DEVICE(S): PROCEDURE: 1. Conscious sedation with continuous EKG and Oximetry monitoring. 2. Venography of the right lower extremity. The patient is a 68-year-old with known DVT who is currently undergoing TPA thrombolysis. The patient returned for follow-up sonography. The patient's catheter was prepped and draped in usual sterile fashion. A small injection of contrast was performed. This demonstrated some minimal residual thrombus within the deep venous system of the right leg however the vast majority had resolved. There was brisk flow through the venous system. The patient did experience some hemorrhage from the filter placement site in the right neck as well s ome oozing around the sheath in the right popliteal fossa as such, the decision was made to discontin ue TPA at this point. The sheath within the right popliteal fossa was removed. Conscious sedation was performed with the prescribed dosages and duration as above in the presence of an independent trained radiology nurse to assist in the monitoring of the patient. EKG and oximetry remained stable throughout the procedure. CONCLUSION: 1. Near complete lysis of the thrombus within the deep venous system of the right leg. There is now good flow through the femoral vein. Electronically signed by: Jose Miguel Corona MD 04/16/2018 4:00 PM EDT
[2018-04-16] MEDS ORDERED: cloNIDine HCL 0.1 MG TAB PO PRN (17:15)
[2018-04-16] MEDS: INSULIN DETEMIR 100 UNITS/ML VIAL SQ SCH (20:48)
[2018-04-16] MEDS: MORPHINE SULFATE 15 MG CONTROLLED RELEASE TAB PO SCH (20:49)
[2018-04-16] MEDS: FENOFIBRATE 145 MG TAB PO SCH (20:49)
[2018-04-16] MEDS: PRAVASTATIN SOD 40 MG TAB PO SCH (20:50)
[2018-04-16] MEDS: TAMSULOSIN HCL 0.4 MG CAP PO SCH (20:50)
[2018-04-16] MEDS ORDERED: RIVAROXABAN 15 MG TAB PO SCH (21:00)
[2018-04-16] MEDS: RIVAROXABAN 15 MG TAB PO SCH (21:12)
[2018-04-17] VITALS: BP 101/56; PULSE 60; RESP 16; TEMP 98.8; O2SAT 97
[2018-04-17 04:00] VITALS: BP 111/62; PULSE 56; RESP 14; TEMP 98.4; O2SAT 99
[2018-04-17] MEDS: RESP: ALBUTEROL 2.5 MG/IPRATROPIUM 0.5 MG NEB (SCH) INH (04:00)
[2018-04-17] MEDS: CHLORHEXIDINE GLUCONATE 2 % 1 PACK (2 CLOTHS) TOP SCH (04:38)
[2018-04-17 06:00] VITALS: PULSE 62
[2018-04-17 06:03] LABS: AUTOMATED NEUTROPHIL # 1.2 TH/MM3 (1.8-7.7); EOSINOPHIL % 2.2 % (0.0-4.0); HEMATOCRIT 24.9 % (39.0-51.0); HEMOGLOBIN 8.4 GM/DL (13.0-17.0); LYMPH % 14.8 % (9.0-44.0); LYMPHOCYTE # 0.3 TH/MM3 (1.0-4.8); MEAN CELL VOLUME 96.4 FL (80.0-100.0); MEAN CORPUSCULAR HEMOGLOBIN 32.5 PG (27.0-34.0); MEAN CORPUSCULAR HGB CONC 33.7 % (32.0-36.0); MEAN PLATELET VOLUME 7.2 FL (7.0-11.0); MONO % 15.2 % (0.0-8.0); MONOCYTE # 0.3 TH/MM3 (0-0.9); NEUT % 66.8 % (16.0-70.0); PLATELET COUNT 114 TH/MM3 (150-450); RED BLOOD COUNT 2.59 MIL/MM3 (4.50-5.90); RED CELL DISTRIBUTION WIDTH 15.3 % (11.6-17.2); WHITE BLOOD COUNT 1.8 TH/MM3 (4.0-11.0)
[2018-04-17 06:21] LABS: ALBUMIN 2.6 GM/DL (3.4-5.0); AST (GOT) 17 U/L (15-37); BICARBONATE 26.9 MEQ/L (21.0-32.0); BLOOD UREA NITROGEN 10 MG/DL (7-18); CALCIUM 7.9 MG/DL (8.5-10.1); CHLORIDE 109 MEQ/L (98-107); CREATININE 0.83 MG/DL (0.60-1.30); GLOMERULAR FILTRATION RATE 92 ML/MIN (>89); GLUCOSE,RANDOM 105 MG/DL (74-106); MAGNESIUM 1.8 MG/DL (1.5-2.5); SODIUM (NA) 142 MEQ/L (136-145)
[2018-04-17 06:22] LABS: ALT (GPT) 12 U/L (12-78)
[2018-04-17 06:31] LABS: ALKALINE PHOSPHATASE 23 U/L (45-117); FREE T4 1.04 NG/DL (0.76-1.46); TOTAL BILIRUBIN ADULT 0.8 MG/DL (0.2-1.0); TOTAL PROTEIN 5.1 GM/DL (6.4-8.2)
[2018-04-17] MEDS: RIVAROXABAN 15 MG TAB PO SCH (08:00)
[2018-04-17] MEDS: INSULIN ASPART SUPPLEMENTAL SCALE SQ SCH (08:00)
--- NOTE | 2018-04-17 08:00 | HHI.CCPN ---
Subjective Remarks/Hospital Course 67-year-old male. Date of admission 04/15/2018. Date of consultation 04/15/2018. Past medical history includes renal cell carcinoma status post partial right nephrectomy December 2014 and found to have intra-abdominal spread of tumor October 2015. He has extensive peritoneal metastases. Is currently on cabonzanitib. Is currently treated with rivaroxaban 50 mg twice daily for newly diagnosed DVT by the right lower extremity February 27, 2015. He is also a history of elevated BMI, diabetes mellitus with peripheral neuropathy , essential hypertension, hyperlipidemia, depressive disorder NOS and uncontrolled pain secondary to right lower extremity venous thrombosis. Yesterday, patient was seen by interventional radiology. IVC filter was placed in a 3 cm 5 [place] sheath was placed through the thrombus in the right lower extremity and alteplase drip at 2 mg an hour was initiated along with hypertrophied 500 units an hour. He is currently being seen in ICU room 1310. Current complaining of abdominal pain at site of metastatic cancer in pain in his right lower extremity. Denies chest pain and shortness of breath. 04/16: Fibrinogen 154, tPA reduced to 50%, heparin remains at 500 u/hr. Minor bleeding right neck. Airway widely patent. Some pleuritic type chest pain with breathing, sats acceptable, respiratory effort comfortable. 04/17: tPA stopped yesterday, heparin off at 1800. Xarelto started and he feels fine. Leukopenia chronic. Home today. Objective Vital Signs Date Time Temp Pulse Resp B/P (MAP) Pulse Ox O2 Delivery O2 Flow Rate FiO2 04/17/18 06:00 62 04/17/18 04:00 98.4 14 111/62 (78) 99 04/16/18 22:00 Nasal Cannula 2.00 04/15/18 21:59 21 Intake and Output 04/17/18 04/17/18 04/18/18 08:00 16:00 00:00 Intake Total 480 ml Output Total 650 ml Balance -170 ml Result Diagram: 04/17/18 0538 04/17/18 0538 Objective Remarks GENERAL: 59-year-old male currently resting in bed, comfortable. SKIN: Warm and dry. HEAD: Atraumatic. Normocephalic. EYES: Pupils equal and round 2 mm bilaterally and reactive to 2. No scleral icterus. No injection or drainage. ENT: No nasal bleeding or discharge. Mucous membranes pink and moist. NECK: Trachea midline. No JVD. Airway unobstructed. CARDIOVASCULAR: Regular rate and rhythm. S1, S2 predose repair without murmurs , clicks, gallops or rubs. No JVD. RESPIRATORY: Clear to auscultation. Breath sounds equal bilaterally. GASTROINTESTINAL: Abdomen soft, fairly protuberant. No guarding, benign. Bowel sounds appreciated. MUSCULOSKELETAL: Extremities 1+ edema left lower extremity 2+ edema to right lower extremity. NEUROLOGICAL: Awake and alert. No obvious cranial nerve deficits. Motor grossly within normal limits. Five out of 5 muscle strength in the arms and legs. Normal speech. A/P Assessment and Plan Neuro/Psych: Acute pain management Peripheral neuropathy Depression disorder NOS Continue home medications morphine sulfate extended release 30 mg at night On morphine sulfate 2-4 mg IV every 3 hours as needed pain 1 through 10 Acetaminophen as indicated for fever 600 mg every 6 hours Continue gabapentin 300 mg 3 times daily for peripheral neuropathy Continue citalopram hydrobromide 40 mg daily for depression CV: Essential hypertension Hyperlipidemia Continue amlodipine 10 mg daily and losartan potassium 100 mg daily for hypertension Continue pravastatin 40 mg at bedtime for dyslipidemia Currently normal saline at 100 cc an hour Resp: Obstructive sleep apnea on CPAP at night Prior history of tobaccoism Nasal cannula to maintain saturations greater than or equal to 92% Incentive spirometry while awake Okay for CPAP at night using her machine at home settings GI: Gastroesophageal reflux disease 2200 ADA diet Pantoprazole for GI prophylaxis Docusate sodium/senna 1 tablet twice daily for bowel regimen : Condom catheter provided for accurate I's and O's in a critically ill patient Endo: Diabetes mellitus 1.5 treat as 1.0 At home on insulin glargine 20 units at night. Current insulin detemir 5 units tonight with Novulog sliding scale insulin Accu-Cheks before meals at bedtime/ medium protocol Renal: Currently normal saline at 100 cc an hour Monitor urine output Accurate I's and O's Heme: Leukopenia Normocytic anemia Right lower extremity DVT Chronic anticoagulation with rivaroxaban History of right renal cell carcinoma status post partial nephrectomy/radiation therapy with mesenteric metastases Holding rivaroxaban secondary to current alteplase/heparin use Monitor CBC daily. Follow trends ID: Monitor for signs and symptomatology of infection FEN: Replace electrolytes as clinically indicated per ICU electrolyte protocol MSK: PT evaluate and treat Access Utilize peripheral IV. Central line if indicated Prophylaxis -GI -pantoprazole -DVT -SCD/ xarelto 15 mg q12h Overall impression: Stable respiratory and hemodynamic status. Home. Trell Busch MD Apr 17, 2018 08:00
--- NOTE | 2018-04-17 08:11 | HHI.DS ---
Discharge Summary Admission Date Apr 15, 2018 at 12:59 Discharge Date: Apr 17, 2018 Admitting Diagnosis Lower extremity DVT. (1) DVT (deep venous thrombosis) ICD Code: I82.409 - Acute embolism and thrombosis of unspecified deep veins of unspecified lower extremity Status: Acute Procedures 1. Lower extremity deep venous system infusion catheter insertion. 2. Insertion IVC filter CBC/BMP: 04/17/18 0538 04/17/18 0538 Significant Findings Laboratory Tests Test 04/15/18 08:15 04/15/18 14:18 04/15/18 18:20 04/15/18 20:45 White Blood Count 2.3 TH/MM3 (4.0-11.0) 2.5 TH/MM3 (4.0-11.0) Red Blood Count 3.14 MIL/MM3 (4.50-5.90) 2.97 MIL/MM3 (4.50-5.90) Hemoglobin 10.3 GM/DL (13.0-17.0) 9.6 GM/DL (13.0-17.0) Hematocrit 30.3 % (39.0-51.0) 28.6 % (39.0-51.0) Neutrophils (%) (Auto) 73.7 % (16.0-70.0) 72.9 % (16.0-70.0) Monocytes (%) (Auto) 11.7 % (0.0-8.0) 11.8 % (0.0-8.0) Neutrophils # (Auto) 1.7 TH/MM3 (1.8-7.7) Lymphocytes # (Auto) 0.3 TH/MM3 (1.0-4.8) 0.3 TH/MM3 (1.0-4.8) Activated Partial Thromboplast Time 22.9 SEC (24.3-30.1) Random Glucose 137 MG/DL (74-106) Chloride Level 108 MEQ/L (98-107) Estimat Glomerular Filtration Rate 81 ML/MIN (>89) Platelet Count 146 TH/MM3 (150-450) Test 04/16/18 00:05 04/16/18 01:25 04/16/18 05:30 04/17/18 05:38 Activated Partial Thromboplast Time 33.1 SEC (24.3-30.1) 33.0 SEC (24.3-30.1) Fibrinogen 154 mg/dL (227-377) White Blood Count 2.4 TH/MM3 (4.0-11.0) 2.2 TH/MM3 (4.0-11.0) 1.8 TH/MM3 (4.0-11.0) Red Blood Count 2.91 MIL/MM3 (4.50-5.90) 2.82 MIL/MM3 (4.50-5.90) 2.59 MIL/MM3 (4.50-5.90) Hemoglobin 9.4 GM/DL (13.0-17.0) 9.2 GM/DL (13.0-17.0) 8.4 GM/DL (13.0-17.0) Hematocrit 27.8 % (39.0-51.0) 27.1 % (39.0-51.0) 24.9 % (39.0-51.0) Platelet Count 140 TH/MM3 (150-450) 127 TH/MM3 (150-450) 114 TH/MM3 (150-450) Neutrophils (%) (Auto) 77.0 % (16.0-70.0) 73.5 % (16.0-70.0) Monocytes (%) (Auto) 11.4 % (0.0-8.0) 12.8 % (0.0-8.0) 15.2 % (0.0-8.0) Lymphocytes # (Auto) 0.2 TH/MM3 (1.0-4.8) 0.3 TH/MM3 (1.0-4.8) 0.3 TH/MM3 (1.0-4.8) Neutrophils # (Auto) 1.6 TH/MM3 (1.8-7.7) 1.2 TH/MM3 (1.8-7.7) Prothrombin Time 12.4 SEC (9.8-11.6) Total Protein 5.1 GM/DL (6.4-8.2) 5.1 GM/DL (6.4-8.2) Albumin 2.8 GM/DL (3.4-5.0) 2.6 GM/DL (3.4-5.0) Calcium Level 7.7 MG/DL (8.5-10.1) 7.9 MG/DL (8.5-10.1) Alkaline Phosphatase 24 U/L (45-117) 23 U/L (45-117) Potassium Level 3.4 MEQ/L (3.5-5.1) Chloride Level 109 MEQ/L (98-107) 109 MEQ/L (98-107) Phosphorus Level 2.0 MG/DL (2.5-4.9) Imaging Venogram, lower extremities PE at Discharge Lungs clear, breathing comfortably. Transfer Summary Left LE infusion catheter placed for DVT. IVC filter placed. tPA infused. heparin gtt. Converted to xarleto. Dr. Moya follows in Oncology Clinic. Hospital Course 67-year-old male. Date of admission 04/15/2018. Date of consultation 04/15/2018. Past medical history includes renal cell carcinoma status post partial right nephrectomy December 2014 and found to have intra-abdominal spread of tumor October 2015. He has extensive peritoneal metastases. Is currently on cabonzanitib. Is currently treated with rivaroxaban 50 mg twice daily for newly diagnosed DVT by the right lower extremity February 27, 2015. He is also a history of elevated BMI, diabetes mellitus with peripheral neuropathy , essential hypertension, hyperlipidemia, depressive disorder NOS and uncontrolled pain secondary to right lower extremity venous thrombosis. Yesterday, patient was seen by interventional radiology. IVC filter was placed in a 3 cm 5 [place] sheath was placed through the thrombus in the right lower extremity and alteplase drip at 2 mg an hour was initiated along with hypertrophied 500 units an hour. He is currently being seen in ICU room 1310. Current complaining of abdominal pain at site of metastatic cancer in pain in his right lower extremity. Denies chest pain and shortness of breath. 04/16: Fibrinogen 154, tPA reduced to 50%, heparin remains at 500 u/hr. Minor bleeding right neck. Airway widely patent. Some pleuritic type chest pain with breathing, sats acceptable, respiratory effort comfortable. 04/17: tPA stopped yesterday, heparin off at 1800. Xarelto started and he feels fine. Leukopenia chronic. Home today. Pt Condition on Discharge: Good Discharge Disposition: Discharge Home Discharge Instructions DIET: Follow Instructions for: Diabetic Diet Activities you can perform: Full Weight Bearing Trell Busch MD Apr 17, 2018 08:11
[2018-04-17 08:48] LABS: BANDS 2 % (0-6); LYMPHOCYTES 15 % (9-44); MONOCYTES 7 % (0-8); NEUTROPHIL # MANUAL DIFF 1.4 TH/MM3 (1.8-7.7); POLYS (SEG NEUTROPHILS) 76 % (16-70)
[2018-04-17] MEDS: LOSARTAN 50 MG TAB PO SCH (09:00)
[2018-04-17] MEDS: DOCUSATE SODIUM 50 MG/SENNA 8.6 MG TAB PO SCH (09:00)
[2018-04-17] MEDS: SODIUM CHLORIDE 0.9% FLUSH 10 ML FLUSH IV FLUSH SCH (09:00)
[2018-04-17] MEDS: PANTOPRAZOLE SOD 40 MG DELAYED RELEASE TAB PO SCH (09:00)
[2018-04-17] MEDS: CITALOPRAM HYDROBROMIDE 40 MG TAB PO SCH (09:00)
[2018-04-17] MEDS: GABAPENTIN 300 MG CAP PO SCH (09:00)
[2018-04-17 16:28] LABS: HEMOGLOBIN A1C 5.3 % (4.3-6.0)
== END 2018-04-17 09:25 | disposition home or self-care (01) | DRG 252 ==
LOC: HROP 07:40 → HRIP 07:43 → HROP 12:23 → HRIP 12:23 → N03A 12:29 → HROP 12:59 → N03A 12:59
PROVIDERS: ADMIT Hospitalist; ATTEND Hospitalist
PROC: 06H03DZ Insertion of Intraluminal Device into Inferior Vena Cava, Percutaneous Approach (ICD-10-PCS; principal; 2018-04-15)
PROC: 3E03317 Introduction of Other Thrombolytic into Peripheral Vein, Percutaneous Approach (ICD-10-PCS; 2018-04-15)
PROC: 06P Lower Veins, Removal (ICD-10-PCS; 2018-04-16)
DX: I82.401 Acute embolism and thrombosis of unspecified deep veins of right lower extremity (principal); I26.99 Other pulmonary embolism without acute cor pulmonale; C78.6 Secondary malignant neoplasm of retroperitoneum and peritoneum; C64.9 Malignant neoplasm of unspecified kidney, except renal pelvis; D64.9 Anemia, unspecified; I10 Essential (primary) hypertension; D72.819 Decreased white blood cell count, unspecified; F32.9 Major depressive disorder, single episode, unspecified; E78.5 Hyperlipidemia, unspecified; E11.42 Type 2 diabetes mellitus with diabetic polyneuropathy; G47.33 Obstructive sleep apnea (adult) (pediatric); N40.0 Benign prostatic hyperplasia without lower urinary tract symptoms; K21.9 Gastro-esophageal reflux disease without esophagitis; R10.9 Unspecified abdominal pain; R07.81 Pleurodynia; R60.0 Localized edema; Z87.891 Personal history of nicotine dependence; Z90.5 Acquired absence of kidney; Z85.528 Personal history of other malignant neoplasm of kidney; Z82.49 Family history of ischemic heart disease and other diseases of the circulatory system; Z79.899 Other long term (current) drug therapy; Z79.4 Long term (current) use of insulin
CPT/HCPCS: 37191; 37212; 37214; 75820; 76937; 80048; 80053; 82550; 82948; 83036; 83605; 83735; 84100; 84439; 84443; 85007; 85025; 85027; 85384; 85610; 85730; 87641; 94150; 94640; 94664; 99152; 99153; C1757; C1769; C1880; C1887; C1894; J1644; J2250; J2270; J2997; J3010; J7030; J7040; J7050; Q9967

== ENCOUNTER 2018-04-20 15:42 | Emergency (ER) | payer MEDICARE, OTHER ==
[~2018-04-20] VITALS: Ht 195.6 cm; Wt 132.0 kg
[~2018-04-20 15:42] MED LIST changes: -ASPI81TA81 PO; -BEDSIDE COMMODE1 MI1; -COEN400C PO; -COLL30T TOPICAL; -DILA2TAB4 PO; -HYDR4TAB PO; +MS C15TA7 PO; +PROC10TA PO; -RAISED TOILET S1 MI1
[2018-04-20 16:07] VITALS: BP 139/82; PULSE 76; RESP 21; TEMP 98.2; O2SAT 100
[2018-04-20] MEDS ORDERED: ONDANSETRON ODT 4 MG TAB PO ONE (16:30)
[2018-04-20] MEDS ORDERED: MORPHINE SULFATE 4 MG/ML INJ IV PUSH ONE ×2 (16:30→17:30)
--- NOTE | 2018-04-20 16:34 | PD ---
HPI Chief Complaint: Abdominal Pain Time Seen by Provider: 16:10 Travel History International Travel<30 days: No Contact w/Intl Traveler<30days: No Traveled to known affect area: No History of Present Illness HPI The patient is a 68-year-old male who presents to the emergency department for urinary retention and constipation. The patient has a history of stage IV renal cell carcinoma and is followed by his oncologist, Dr. Moya. The patient states he has known metastasis within the abdomen, notes decreased ability to have a bowel movement over the last several weeks. The patient states his last bowel movement was 7 days ago. He now notes a 2 day history of decreased urinary output with just overflow incontinence. The patient denies any previous history of benign prostatic hypertrophy or prostate cancer. He denies any previous history of urinary symptoms prior to the constipation. He has been having a small amount of liquid output through the rectum, but denies any significant bowel movement for several days. The patient states he performed a self digital examination and feels like there is a hard stool within the rectal vault. He does note some nausea and vomiting. Symptoms are moderate. PFSH Past Medical History Hx Anticoagulant Therapy: Yes (ASPIRIN) Arthritis: Yes (bilateral knees, ankles, and hands ) Blood Disorders: No Anxiety: No Depression: Yes Heart Rhythm Problems: No Cancer: Yes (STAGE 4 RENAL ) Cardiovascular Problems: No High Cholesterol: Yes Chemotherapy: Yes Chest Pain: No Congestive Heart Failure: No COPD: Yes Diabetes: Yes Patient Takes Glucophage: No Diminished Hearing: No Diverticulitis: Yes Endocrine: Yes Gastrointestinal Disorders: Yes (diverticulitis) Genitourinary: Yes Hepatitis: No Hiatal Hernia: No Hypertension: Yes Immune Disorder: No Inguinal Hernia: Yes Implanted Vascular Access Dvce: Yes (RIGHT CHEST ) Musculoskeletal: Yes (RLE monse ) Neurologic: No Psychiatric: Yes (Depression) Reproductive: No Respiratory: Yes (hm CPAP) Immunizations Current: Yes Radiation Therapy: No Sleep Apnea: Yes (CPAP ) Thyroid Disease: No Tetanus Vaccination: < 5 Years Influenza Vaccination: Yes Past Surgical History Abdominal Surgery: Yes ( richard hernia) AICD: No Appendectomy: Yes Body Medical Devices: R LEG TITANIUM MONSE Cardiac Surgery: No Ear Surgery: No Endocrine Surgery: No Eye Surgery: No Genitourinary Surgery: Yes (RIGHT PARTIAL NEPHRECTOMY ) Gynecologic Surgery: No Joint Replacement: No Oral Surgery: Yes Pacemaker: No Thoracic Surgery: No Other Surgery: Yes (Kidney Tumor, richard hernia, RLE) Social History Alcohol Use: No Tobacco Use: No Substance Use: No Allergies-Medications (Allergen,Severity, Reaction): Coded Allergies: *MDRO Multi-Drug Resistant Organism (Verified Allergy, Severe, 12/07/17) hx: MRSA 2013. patient denies Reported Meds & Prescriptions Reported Meds & Active Scripts Active Golytely 236 gm (Polyethylene Glycol/Electrolytes) 4,000 Ml Soln 4,000 Ml PO ONCE Xarelto (Rivaroxaban) 15 Mg Tab 15 Mg PO BID 21 Days Reported Prochlorperazine Maleate 10 Mg Tab 10 Mg PO Q6H PRN Ms Contin (Morphine Sulfate) 15 Mg Tab 30 Mg PO HS Gabapentin 300 Mg Cap 300 Mg PO TID Flomax (Tamsulosin HCl) 0.4 Mg Cap 0.4 Mg PO HS Cabometyx (Cabozantinib S-Malate) 60 Mg Tablet Tab PO DAILY Celexa (Citalopram Hydrobromide) 40 Mg Tab 40 Mg PO DAILY Protonix (Pantoprazole Sodium) 40 Mg Tab 40 Mg PO DAILY Zofran (Ondansetron HCl) 8 Mg Tab 8 Mg PO TID PRN Fenofibrate 160 Mg Tab 160 Mg PO HS Pravastatin 40 Mg Tab 40 Mg PO HS Norvasc (Amlodipine Besylate) 10 Mg Tab 10 Mg PO DAILY Losartan (Losartan Potassium) 100 Mg Tab 100 Mg PO DAILY Toujethanh Solostar Pen Inj (Insulin Glargine) 300 Unit/Ml Pen 20 Units SQ DAILY Review of Systems Except as stated in HPI: all other systems reviewed are Neg General / Constitutional: No: Fever Cardiovascular: No: Chest Pain or Discomfort Respiratory: No: Shortness of Breath Gastrointestinal: Positive: Nausea, Vomiting, Abdominal Pain, Constipation, No : Diarrhea Genitourinary: Positive: Decreased Urinary Output, Dribbling Musculoskeletal: Positive: Edema Physical Exam Narrative GENERAL: Awake, alert, pleasant 68-year-old male who appears his stated age and is in no acute respiratory distress. SKIN: Focused skin assessment warm/dry. HEAD: Atraumatic. Normocephalic. EYES: No injection or drainage. ENT: No nasal bleeding or discharge. Mucous membranes pink and moist. NECK: Trachea midline. No JVD. CARDIOVASCULAR: Regular rate and rhythm. No murmur appreciated. Port in place right chest wall. RESPIRATORY: No accessory muscle use. Clear to auscultation. Breath sounds equal bilaterally. GASTROINTESTINAL: Abdomen soft, mild suprapubic tenderness and left lower quadrant tenderness. No guarding or rigidity. MUSCULOSKELETAL: No obvious deformities. No clubbing. No cyanosis. Bilateral lower extremity pitting edema. NEUROLOGICAL: Awake and alert. No obvious cranial nerve deficits. Motor grossly within normal limits. Normal speech. PSYCHIATRIC: Appropriate mood and affect; insight and judgment normal. Data Data Last Documented VS Vital Signs Date Time Temp Pulse Resp B/P (MAP) Pulse Ox O2 Delivery O2 Flow Rate FiO2 04/20/18 16:59 73 19 159/83 (108) 100 Room Air 04/20/18 16:07 98.2 Orders Orders Abdomen, Flat & Upright (04/20/18 ) Complete Blood Count With Diff (04/20/18 16:24) Basic Metabolic Panel (Bmp) (04/20/18 16:24) Urinary Catheter Insert/Apply (04/20/18 16:24) Urinalysis - C+S If Indicated (04/20/18 16:24) Cath, Leg Strap Ea (04/20/18 16:24) Bag, Leg 32oz Sterile Large Ea (04/20/18 16:24) Morphine Inj (Morphine Inj) (04/20/18 16:30) Ondansetron Odt (Zofran Odt) (04/20/18 16:30) Prochlorperazine Inj (Compazine Inj) (04/20/18 16:45) Morphine Inj (Morphine Inj) (04/20/18 17:30) Sodium Chlor 0.9% 1000 Ml Inj (Ns 1000 M (04/20/18 17:30) Ed Discharge Order (04/20/18 17:44) Labs Laboratory Tests Test 04/20/18 16:30 04/20/18 16:50 White Blood Count 4.3 TH/MM3 Red Blood Count 3.31 MIL/MM3 Hemoglobin 10.7 GM/DL Hematocrit 32.0 % Mean Corpuscular Volume 96.6 FL Mean Corpuscular Hemoglobin 32.5 PG Mean Corpuscular Hemoglobin Concent 33.6 % Red Cell Distribution Width 15.3 % Platelet Count 201 TH/MM3 Mean Platelet Volume 7.6 FL Neutrophils (%) (Auto) 84.4 % Lymphocytes (%) (Auto) 6.6 % Monocytes (%) (Auto) 8.4 % Eosinophils (%) (Auto) 0.2 % Basophils (%) (Auto) 0.4 % Neutrophils # (Auto) 3.6 TH/MM3 Lymphocytes # (Auto) 0.3 TH/MM3 Monocytes # (Auto) 0.4 TH/MM3 Eosinophils # (Auto) 0.0 TH/MM3 Basophils # (Auto) 0.0 TH/MM3 CBC Comment DIFF FINAL Differential Comment Blood Urea Nitrogen 9 MG/DL Creatinine 0.84 MG/DL Random Glucose 167 MG/DL Calcium Level 8.8 MG/DL Sodium Level 140 MEQ/L Potassium Level 3.4 MEQ/L Chloride Level 107 MEQ/L Carbon Dioxide Level 18.4 MEQ/L Anion Gap 15 MEQ/L Estimat Glomerular Filtration Rate 91 ML/MIN Urine Color YELLOW Urine Turbidity CLEAR Urine pH 8.0 Urine Specific [place] 1.011 Urine Protein NEG mg/dL Urine Glucose (UA) 150 mg/dL Urine Ketones 20 mg/dL Urine Occult Blood NEG Urine Nitrite NEG Urine Bilirubin NEG Urine Urobilinogen 4.0 OR GREATER mg/dL Urine Leukocyte Esterase NEG Urine RBC 1 /hpf Urine WBC 2 /hpf Urine Squamous Epithelial Cells <1 /hpf Urine Hyaline Casts 1 /lpf Urine Mucus FEW /lpf Microscopic Urinalysis Comment CULT NOT INDICATED MDM Medical Decision Making Medical Screen Exam Complete: Yes Emergency Medical Condition: Yes Medical Record Reviewed: Yes Interpretation(s) EKG reveals normal sinus rhythm with occasional supraventricular premature complex. Heart rate 77. Last Impressions Abdomen X-Ray 04/20/18 0000 Signed Impressions: CONCLUSION: Constipation. No acute findings. Laboratory Tests Test 04/20/18 16:30 04/20/18 16:50 White Blood Count 4.3 TH/MM3 Red Blood Count 3.31 MIL/MM3 Hemoglobin 10.7 GM/DL Hematocrit 32.0 % Mean Corpuscular Volume 96.6 FL Mean Corpuscular Hemoglobin 32.5 PG Mean Corpuscular Hemoglobin Concent 33.6 % Red Cell Distribution Width 15.3 % Platelet Count 201 TH/MM3 Mean Platelet Volume 7.6 FL Neutrophils (%) (Auto) 84.4 % Lymphocytes (%) (Auto) 6.6 % Monocytes (%) (Auto) 8.4 % Eosinophils (%) (Auto) 0.2 % Basophils (%) (Auto) 0.4 % Neutrophils # (Auto) 3.6 TH/MM3 Lymphocytes # (Auto) 0.3 TH/MM3 Monocytes # (Auto) 0.4 TH/MM3 Eosinophils # (Auto) 0.0 TH/MM3 Basophils # (Auto) 0.0 TH/MM3 CBC Comment DIFF FINAL Differential Comment Blood Urea Nitrogen 9 MG/DL Creatinine 0.84 MG/DL Random Glucose 167 MG/DL Calcium Level 8.8 MG/DL Sodium Level 140 MEQ/L Potassium Level 3.4 MEQ/L Chloride Level 107 MEQ/L Carbon Dioxide Level 18.4 MEQ/L Anion Gap 15 MEQ/L Estimat Glomerular Filtration Rate 91 ML/MIN Urine Color YELLOW Urine Turbidity CLEAR Urine pH 8.0 Urine Specific [place] 1.011 Urine Protein NEG mg/dL Urine Glucose (UA) 150 mg/dL Urine Ketones 20 mg/dL Urine Occult Blood NEG Urine Nitrite NEG Urine Bilirubin NEG Urine Urobilinogen 4.0 OR GREATER mg/dL Urine Leukocyte Esterase NEG Urine RBC 1 /hpf Urine WBC 2 /hpf Urine Squamous Epithelial Cells <1 /hpf Urine Hyaline Casts 1 /lpf Urine Mucus FEW /lpf Microscopic Urinalysis Comment CULT NOT INDICATED Differential Diagnosis Differential diagnosis includes urinary retention, fecal impaction, constipation , sigmoid volvulus, partial small bowel obstruction, small bowel obstruction, metastasis, UTI, dehydration. Narrative Course The patient's port was accessed. Labs are drawn and sent. Bedside ultrasound was performed which does reveal slightly enlarged bladder, therefore, [place] catheter was placed. A digital rectal exam was then performed to evaluate for possible fecal impaction. X-ray of the abdomen was performed which reveals constipation, no air-fluid levels to suggest small bowel obstruction or volvulus. The patient did have a large fecal impaction, this was disimpacted at bedside. The patient is slightly dehydrated, was administered 1 the patient will be discharged home on GoLYTELY, is also advised to have a enema at home and the follow-up with his primary physician. Return if symptoms worsen or progress. Diagnosis Primary Impression: Fecal impaction Additional Impressions: Constipation Qualified Codes: K59.00 - Constipation, unspecified Urinary retention Patient Instructions: General Instructions Additional Instructions: GoLYTELY as directed. Follow-up with your primary physician. Return if symptoms worsen or progress. Plenty fluids to stay hydrated. Med/Other Pt SpecificInfo: Prescription(s) given Scripts Peg-Electrolytes (Golytely 236 gm) 4,000 Ml Soln 4000 ML PO ONCE for Bowel Cleanser, #1 CONTAINER 0 Refills Prov: Jemal Quintero MD 04/20/18 Disposition: 01 DISCHARGE HOME Condition: Stable Jemal Quintero MD Apr 20, 2018 16:34
[2018-04-20] MEDS ORDERED: PROCHLORPERAZINE INJ 10 MG/2 ML VIAL IV PUSH ONE (16:45)
[2018-04-20 16:46] LABS: AUTOMATED NEUTROPHIL # 3.6 TH/MM3 (1.8-7.7); BASOPHIL % 0.4 % (0.0-2.0); EOSINOPHIL % 0.2 % (0.0-4.0); HEMOGLOBIN 10.7 GM/DL (13.0-17.0); LYMPH % 6.6 % (9.0-44.0); LYMPHOCYTE # 0.3 TH/MM3 (1.0-4.8); MEAN CELL VOLUME 96.6 FL (80.0-100.0); MEAN CORPUSCULAR HEMOGLOBIN 32.5 PG (27.0-34.0); MEAN CORPUSCULAR HGB CONC 33.6 % (32.0-36.0); MEAN PLATELET VOLUME 7.6 FL (7.0-11.0); MONO % 8.4 % (0.0-8.0); MONOCYTE # 0.4 TH/MM3 (0-0.9); NEUT % 84.4 % (16.0-70.0); PLATELET COUNT 201 TH/MM3 (150-450); RED BLOOD COUNT 3.31 MIL/MM3 (4.50-5.90); RED CELL DISTRIBUTION WIDTH 15.3 % (11.6-17.2); WHITE BLOOD COUNT 4.3 TH/MM3 (4.0-11.0)
[2018-04-20 16:59] VITALS: BP 159/83; PULSE 73; RESP 19; O2SAT 100
--- NOTE | 2018-04-20 17:02 | RADRPT ---
EXAM DATE: 04/20/2018 4:57 PM EDT AGE/SEX: 68 years / Male INDICATIONS: Possible obstruction. Last bowel movement one week ago. CLINICAL DATA: This is the patient's initial encounter. Patient reports that signs and symptoms have been present for 1 week and indicates a pain score of 10/10. MEDICAL/SURGICAL HISTORY: Hypertension. Diabetes mellitus type II. Gastroesophageal reflux di sease. Deep venous thrombosis. Pulmonary embolism. Renal cell carcinoma. Appendectomy. Kyphoplas ty. Colonoscopy. Hernia repair. Partial nephrectomy. Port. Right leg surgery. COMPARISON: No prior exams available for comparison. FINDINGS: Bowel gas pattern nonspecific without definite evidence for obstruction. No free air. Inferior vena c papito filter present. Surgical clips right hemipelvis. Previous kyphoplasty at T12. Constipation. CONCLUSION: Constipation. No acute findings. Electronically signed by: Tez Floyd MD 04/20/2018 5:00 PM EDT
[2018-04-20 17:08] LABS: BICARBONATE 18.4 MEQ/L (21.0-32.0); CALCIUM 8.8 MG/DL (8.5-10.1); CREATININE 0.84 MG/DL (0.60-1.30)
[2018-04-20 17:24] LABS: BILIRUBIN, URINE NEG (NEG); BLOOD, URINE NEG (NEG); GLUCOSE,URINE 150 mg/dL (NEG); HYALINE CAST, URINE 1 /lpf (RARE); KETONE, URINE 20 mg/dL (NEG); MUCUS URINE FEW /lpf (OCC); NITRITE,URINE NEG (NEG); SQUAMOUS EPITHELIAL CELL URINE <1 /hpf (0-5); URINE COLOR YELLOW (YELLW/STRAW); URINE LEUKOCYTE ESTERASE NEG (NEG)
[2018-04-20] MEDS ORDERED: COLY4000S PO (17:28)
[2018-04-20] MEDS ORDERED: SODIUM CHLOR 0.9% 1000 ML INJ 1,000 ML IV ONE (17:30)
--- NOTE | 2018-04-21 13:58 | EKG ---
Date Performed: 04/20/2018 Time Performed: 15:12:09 PTAGE: 68 years EKG: Sinus rhythm WITH OCCASIONAL SUPRAVENTRICULAR PREMATURE COMPLEXES MARKED LEFT AXIS DEVIATION PATTERN CONSISTENT W ITH PULMONARY DISEASE MODERATE INTRAVENTRICULAR CONDUCTION DELAY ABNORMAL ECG Since the PREVIOUS TRACING , no significant change noted PREVIOUS TRACIN07/12/2017 09.45 DOCTOR: Albert Win Interpretating Date/Time 04/21/2018 13:52:51
== END 2018-04-20 19:44 | disposition home or self-care (01) ==
LOC: NEPC 15:42
DX: K56.41 Fecal impaction (principal); K59.00 Constipation, unspecified; R33.9 Retention of urine, unspecified; R11.2 Nausea with vomiting, unspecified; C64.9 Malignant neoplasm of unspecified kidney, except renal pelvis; M19.90 Unspecified osteoarthritis, unspecified site; F32.9 Major depressive disorder, single episode, unspecified; E78.00 Pure hypercholesterolemia, unspecified; J44.9 Chronic obstructive pulmonary disease, unspecified; E11.9 Type 2 diabetes mellitus without complications; I10 Essential (primary) hypertension; G47.30 Sleep apnea, unspecified; R94.31 Abnormal electrocardiogram [ECG] [EKG]; Z79.899 Other long term (current) drug therapy; Z87.19 Personal history of other diseases of the digestive system
CPT/HCPCS: 51702; 74019; 80048; 81001; 85025; 93005; 96361; 96374; 96375; 96376; 99285; J0780; J2270; J7030